=== PATIENT | female | born 1965 ===

== ENCOUNTER 2022-09-03 08:33 | Emergency (ER) | payer BC ==
--- OUTSIDE RECORDS SUMMARY | 2022-09-03 08:37 | XMS REPORT | Continuity of Care Document ---
:1965 Author Organization [facility] t Address [address] [place] [address] [place] [id number] Care Team Providers Name Role Phone Landon Caldwell Primary Care Physician BERTHA TRAN Attending Clinician Unavailable Bertha Tran PA-C Attending Clinician ELENITA CHATMAN Attending Clinician Unavailable Elenita Cherry Attending Clinician Massiel Wild Attending Clinician Luiz Pierson Attending Clinician Unavailable Nelida Georges MD Attending Clinician NELIDA GEORGES Attending Clinician Unavailable Allison Mir Attending Clinician MASSIEL JAMES Attending Clinician Unavailable Demar DONIS, Ayse Chamorro Attending Clinician Unavailable Provider, [facility] Attending Clinician Unavailable Raina Heath Attending Clinician RAINA GUO Attending Clinician Unavailable Doctor Unassigned, [place] Attending Clinician Unavailable Johnathan Lewis DO Attending Clinician Viki Yancey MD Attending Clinician VIKI YANCEY Attending Clinician Unavailable Reynaldo FITZGERALD, Bakari Attending Clinician Humera Correa Attending Clinician Provider, [facility] Attending Clinician Unavailable Lab, [facility] Attending Clinician Unavailable Vaishnavi Bonilla Attending Clinician VAISHNAVI BERNAL Attending Clinician Unavailable Luiz Pierson Admitting Clinician Unavailable Physician, No Primary or Family Admitting Clinician Unavaila ble Payers Payer Name Policy Type Policy Number Effective Date Expiration Date S jamaal [facility] [id number] 2011 00:00:00 Problems Condition Condition Condition Status Onset Resolution Last Treating Co mments Source Name Details Category Date Date Treatment Clinician Date No known No known Disease Unive rs active active ity of problems problems [facility] Allergies, Adverse Reactions, Alerts Allergy Allergy Status Severity Reaction(s) Onset Inactive Treating Comm ents Source Name Type Date Date Clinician No Known DA Active U 2008-04 [facility] [place] 00:00: d 00 [facility] No Known DA Active U 2008-04 [facility] [place] 00:00: d 00 Medical [place] NO KNOWN Drug Active Univers ALLERGIE Class ity of S [facility] Social History Social Habit Start Date Stop Date Quantity Comments Source Exposure to 2021-11-05 2021-11-15 Not sure [facility] [place]-CoV-2 00:00:00 09:20:00 [facility] (event) [place] Tobacco use and 2021-01-29 2021-01-29 Smokeless tobacco Un iversity of exposure 00:00:00 00:00:00 non-user [facility] Sex Assigned At [birth year] Universit y of 00:00:00 00:00:00 [facility] Smoking Status Start Date Stop Date Source Never smoked tobacco [facility] Medications Ordered Filled Start Stop Current Ordering Indication Dosage Frequency Signature Comments Components Source Medication Medication Date Date Medication? Clinician (SIG) Name Name vitamin E Yes vitamin E Uni vers (AQUASOL E, 11-15 ity of D-ALPHA 09:22: [place] TOCOPHEROL, 35 Medical ORAL) Branch doxycycline 2021- No [id number] 100mg Take 1 Univers hyclate 100 11-15 tablet by it y of mg tablet 00:00: 04:59 mouth in [place] 00 :00 the Medical morning Branch and 1 tablet in the evening. Do all this for 7 days. amoxicillin 2021- No [id number] 1{tbl} Take 1 Univers -clavulanat 11-08 tablet by it y of e 00:00: 04:59 mouth in [place] (AUGMENTIN) 00 :00 the Medical 875-125 mg morning Branch per tablet and 1 tablet in the evening. Do all this for 7 days. amoxicillin 2021- No [id number] 1{tbl} Take 1 Univers -clavulanat 11-08 tablet by it y of e 00:00: 04:59 mouth in [place] (AUGMENTIN) 00 :00 the Medical 875-125 mg morning Branch per tablet and 1 tablet in the evening. Do all this for 7 days. bromphenira 2021- No [id number] 5mL Take 5 mL Univers mine-pseudo 11-0806 by mouth 4 i ty of ephedrine-D 00:00: 04:59 (four) [place] M 00 :00 times Medical mg/5 mL daily as Branch syrup needed for Congestion /Allergies for up to 5 days. levothyroxi Yes 150ug Take 150 U nivers ne 150 mcg 7-27 mcg by ity of tablet 00:00: mouth. [place] 00 Medical Branch hydrocortis Yes INSERT 1 Un iris one 25 mg 7-13 SUPPOSITOR ity of suppository 00:00: Y IN THE [place] 00 RECTUM Medical DAILY Branch CLENPIQ 10 Yes Univers mg-3.5 gram 7-05 DIRECTED 1 it y of -12 00:00: KIT TO USE [place] gram/160 mL 00 Medical Soln DIRECTED Branch BY YOUR COLONOSCOP Y PACKET INSTRUCTIO NS Nitrofurant Yes TAKE 1 Univ ers oin&Nit. 5-11 CAPSULE BY ity o f Macrocryst 00:00: MOUTH [place] 100 mg 00 EVERY 12 Medical capsule HOURS FOR Branch 7 DAYS WITH FOOD azelastine 2020-04 Yes [id number] 1{spray Use 1 Univers 137 mcg 2-28 } [place] in ity of (0.1 %) 00:00: each [place] nasal spray 00 nostril 2 Med ical (two) Branch times daily. Use in each nostril as directed cetirizine 2020-04 Yes [id number] 10mg Take 1 U nivers (ZYRTEC) 10 2-28 tablet by ity of mg tablet 00:00: mouth [place] 00 daily. Medical Branch bromphenmariposa 2020-04 Yes [id number] 5mL Take 5 mL Univers mine-pseudo 2-28 by mouth 4 it y of ephedrine-D 00:00: (four[place] (BROMFED 00 times Medical DM) 2-30-10 daily as Bran ch mg/5 mL needed for syrup Congestion /Allergies . amoxicillin 2020-04 Yes [id number] 1{tbl} Take 1 Univers -clavulanat 2-28 tablet by ity of e 00:00: mouth 2 [place] (AUGMENTIN) 00 (two) Medical 875-125 mg times Branch per tablet daily. azelastine 2020-04 Yes [id number] 1{spray Use 1 Univers 137 mcg 2-28 } [place] in ity of (0.1 %) 00:00: each [place] nasal spray 00 nostril 2 Med ical (two) Branch times daily. Use in each nostril as directed cetirizine 2020-04 Yes [id number] 10mg Take 1 U nivers (ZYRTEC) 10 2-28 tablet by ity of mg tablet 00:00: mouth [place] 00 daily. Medical Branch [facility] 2020-04 Yes [id number] 5mL Take 5 mL Univers mine-pseudo 2-28 by mouth 4 it y of ephedrine-D 00:00: (four[place] (BROMFED 00 times Medical DM) 2-30-10 daily as Bran ch mg/5 mL needed for syrup Congestion /Allergies . amoxicillin 2020-04 Yes [id number] 1{tbl} Take 1 Univers -clavulanat 2-28 tablet by ity of e 00:00: mouth 2 [place] (AUGMENTIN) 00 (two) Medical 875-125 mg times Branch per tablet daily. azelastine 2020-04 Yes [id number] 1{spray Use 1 Univers 137 mcg 2-28 } [place] in ity of (0.1 %) 00:00: each [place] nasal spray 00 nostril 2 Med ical (two) Branch times daily. Use in each nostril as directed cetirizine 2020-04 Yes [id number] 10mg Take 1 U nivers (ZYRTEC) 10 2-28 tablet by ity of mg tablet 00:00: mouth [place] 00 daily. Medical Branch azelastine 2020-04 Yes [id number] 1{spray Use 1 Univers 137 mcg 2-28 } [place] in ity of (0.1 %) 00:00: each [place] nasal spray 00 nostril 2 Med ical (two) Branch times daily. Use in each nostril as directed cetirizine 2020-04 Yes [id number] 10mg Take 1 U nivers (ZYRTEC) 10 2-28 tablet by ity of mg tablet 00:00: mouth [place] 00 daily. Medical Branch bromphenira 2020-04- No [id number] 5mL Take 5 mL Univers mine-pseudo 06-08- by mouth 4 i ty of ephedrine-D 00:00: 00:00 (four) [place] M (BROMFED 00 :00 times Medical DM) 2-30-10 daily as Bran ch mg/5 mL needed for syrup Congestion /Allergies . amoxicillin 2020-04- No [id number] 1{tbl} Take 1 Univers -clavulanat -05 11- tablet by it y of e 00:00: 00:00 mouth 2 [place] (AUGMENTIN) 00 :00 (two) Medical 875-125 mg times Branch per tablet daily. amoxicillin 2020-04- No [id number] 1{tbl} Take 1 Univers -clavulanat -07 04- tablet by it y of e 00:00: 00:00 mouth 2 [place] (AUGMENTIN) 00 :00 (two) Medical 875-125 mg times Branch per tablet daily for 7 days. azithromyci 2020-04 Yes [id number] 250mg Take 1 Univers n 250 mg 0-21 tablet by ity of tablet 00:00: mouth [place] 00 daily. Medical Take 500 Branch mg day 1, then 250 mg days 2 to 5. methylPREDN 2020-04 Yes [id number] Take by Univers ISolone 0-21 mouth ity of (MEDROL, 00:00: SEE-INSTRU [place] MONICA,) 4 mg 00 CTIONS. Medica l tablets follow Branch package directions azithromyci 2020-04 Yes [id number] 250mg Take 1 Univers n 250 mg 0-21 tablet by ity of tablet 00:00: mouth [place] 00 daily. Medical Take 500 Branch mg day 1, then 250 mg days 2 to 5. methylPREDN 2020-04 Yes [id number] Take by Univers ISolone 0-21 mouth ity of (MEDROL, 00:00: SEE-INSTRU [place] MONICA,) 4 mg 00 CTIONS. Medica l tablets follow Branch package directions azithromyci 2020-04 Yes [id number] 250mg Take 1 Univers n 250 mg 0-21 tablet by ity of tablet 00:00: mouth [place] 00 daily. Medical Take 500 Branch mg day 1, then 250 mg days 2 to 5. methylPREDN 2020-04 Yes [id number] Take by Univers ISolone 0-21 mouth ity of (MEDROL, 00:00: SEE-INSTRU [place] MONICA,) 4 mg 00 CTIONS. Medica l tablets follow Branch package directions azithromyci 2020-04 Yes [id number] 250mg Take 1 Univers n 250 mg 0-21 tablet by ity of tablet 00:00: mouth [place] 00 daily. Medical Take 500 Branch mg day 1, then 250 mg days 2 to 5. methylPREDN 2020-04 Yes [id number] Take by Univers ISolone 0-21 mouth ity of (MEDROL, 00:00: SEE-INSTRU [place] MONICA,) 4 mg 00 CTIONS. Medica l tablets follow Branch package directions methylPREDN 0 Yes [id number] Take by Univers ISolone 12-10 mouth ity of (MEDROL, 00:00: SEE-INSTRU [place]ICA,) 4 mg 00 CTIONS. Medica l tablets follow Branch package directions albuterol Yes [id number] 2{puff} Inhale 2 Univers 90 9 Puffs ity of mcg/actuati 00:00: every 6 [place] on inhaler 00 (six) Medical hours as Branch needed for Wheezing or Shortness of Breath. methylPREDN Yes [id number] Take by Univers ISolone 9 mouth ity of (MEDROL, 00:00: SEE-INSTRU [place]ICA,) 4 mg 00 CTIONS. Medica l tablets follow Branch package directions albuterol Yes [id number] 2{puff} Inhale 2 Univers 90 9-01 Puffs ity of mcg/actuati 00:00: every 6 [place] on inhaler 00 (six) Medical hours as Branch needed for Wheezing or Shortness of Breath. methylPREDN Yes [id number] Take by Univers ISolone 9-01 mouth ity of (MEDROL, 00:00: SEE-INSTRU [place]ICA,) 4 mg 00 CTIONS. Medica l tablets follow Branch package directions albuterol Yes [id number] 2{puff} Inhale 2 Univers 90 9-01 Puffs ity of mcg/actuati 00:00: every 6 [place] on inhaler 00 (six) Medical hours as Branch needed for Wheezing or Shortness of Breath. methylPREDN Yes [id number] Take by Univers ISolone 9-01 mouth ity of (MEDROL, 00:00: SEE-INSTRU [place]ICA,) 4 mg 00 CTIONS. Medica l tablets follow Branch package directions albuterol Yes [id number] 2{puff} Inhale 2 Univers 90 9-01 Puffs ity of mcg/actuati 00:00: every 6 [place] on inhaler 00 (six) Medical hours as Branch needed for Wheezing or Shortness of Breath. ipratropium 2020-0 Yes [id number] 1{spray Use 1 Univers 0.03 % 7-27 } [place] in ity of nasal spray 00:00: each nostril 3 Medical (three) Branch times daily. mupirocin 2 2019-0 Yes [id number] Apply to Univers % ointment 7-27 area(s) 2 ity of 00:00: (two) [place] 00 times Medical daily. Branch MONTELUKAST 2020-0 Yes [id number] TAKE 1 Univers 10 mg 7-27 TABLET BY ity of tablet 00:00: MOUTH [place] 00 EVERYDAY Medical AT BEDTIME Branch ipratropium 2020-0 Yes [id number] 1{spray Use 1 Univers 0.03 % 7-27 } [place] in ity of nasal spray 00:00: each 00 nostril 3 Medical (three) Branch times daily. mupirocin 2 2019-0 Yes [id number] Apply to Univers % ointment 7-27 area(s) 2 ity of 00:00: (two) [place] 00 times Medical daily. Branch MONTELUKAST 2020-0 Yes [id number] TAKE 1 Univers 10 mg 7-27 TABLET BY ity of tablet 00:00: MOUTH [place] 00 EVERYDAY Medical AT BEDTIME Branch ipratropium 2020-0 Yes [id number] 1{spray Use 1 Univers 0.03 % 7-27 } [place] in ity of nasal spray 00:00: each 00 nostril 3 Medical (three) Branch times daily. mupirocin 2 2020-0 Yes [id number] Apply to Univers % ointment 7-27 area(s) 2 ity of 00:00: (two) [place] 00 times Medical daily. Branch MONTELUKAST 2020-0 Yes [id number] TAKE 1 Univers 10 mg 7-27 TABLET BY ity of tablet 00:00: MOUTH [place] 00 EVERYDAY Medical AT BEDTIME Branch ipratropium 2020-0 Yes [id number] 1{spray Use 1 Univers 0.03 % 7-27 } [place] in ity of nasal spray 00:00: each [place] 00 nostril 3 Medical (three) Branch times daily. mupirocin 2 2020-0 Yes [id number] Apply to Univers % ointment 7-27 area(s) 2 ity of 00:00: (two) [place] 00 times Medical daily. Branch MONTELUKAST 2020-0 Yes [id number] TAKE 1 Univers 10 mg 7-27 TABLET BY ity of tablet 00:00: MOUTH 00 EVERYDAY Medical AT BEDTIME Branch Vital Signs Vital Name Observation Time Observation Value Comments Source Systolic blood 2021-11-15 14:20:00 114 [facility]Hg[facility] Diastolic blood 2021-11-15 14:20:00 77 mm[Hg] [facility] Heart rate 2021-11-15 14:20:00 82 /min [facility] Body temperature 2021-11-15 14:20:00 36.83 Claire [facility] Respiratory rate 2021-11-15 14:20:00 16 /min [facility] Body height 2021-11-15 14:20:00 172.7 cm [facility] Body weight 2021-11-15 14:20:00 64.683 kg [facility] [place] [facility] BMI 2021-11-15 14:20:00 21.68 kg/m2 [facility] [place] [facility] Oxygen saturation in 2021-11-15 14:20:00 99 /min University of Arterial blood by [facility] Pulse oximetry Branch Systolic blood 2021-11-08 14:16:00 97 mm[Hg] Univer sity of pressure [place] [facility] Diastolic blood 2021-11-08 14:16:00 64 mm[Hg] Unive rsity of pressure [place] [facility] Heart rate 2021-11-08 14:16:00 83 /min [facility] [place] [facility] Body temperature 2021-11-08 14:16:00 36.94 Claire [facility] ersity [facility] [place] [facility] Body height 2021-11-08 14:16:00 172.7 cm [facility] [place] [facility] Body weight 2021-11-08 14:16:00 67.268 kg [facility] [place] [facility] BMI 2021-11-08 14:16:00 22.55 kg/m2 [facility] [place] [facility] Oxygen saturation in 2021-11-08 14:16:00 98 /min University of Arterial blood by [facility] Pulse oximetry Branch Systolic blood 2021-04-07 15:31:00 117 mm[Hg] Univer sity of pressure [place] [facility] Diastolic blood 2021-04-07 15:31:00 51 mm[Hg] Unive rsity of pressure [place] [facility] Heart rate 2021-04-07 15:31:00 87 /min [facility] [place] [facility] Body temperature 2021-04-07 15:31:00 37.17 Claire [facility] [place] [facility] Respiratory rate 2021-04-07 15:31:00 17 /min Univ ersity [facility] [place] [facility] Body height 2021-04-07 15:31:00 172.7 cm [facility] [place] [facility] Body weight 2021-04-07 15:31:00 65.137 kg [facility] [place] [facility] BMI 2021-04-07 15:31:00 21.83 kg/m2 [facility] [place] [facility] Oxygen saturation in 2021-04-07 15:31:00 98 /min University of Arterial blood by [facility] Pulse oximetry Branch Procedures Procedure Date / Time Performed Performing Clinician Sourc e POCT SARS-COV-2 2021-11-08 00:00:00 Elenita Chatman [facility] ANTIGEN (BINAX NOW) Medical Bran ch Encounters Start End Encounter Admission Attending Care Care Encounter Source Date/Time Date/Time Type Type Clinicians Facility Department ID 2021-11-15 2021-11-15 Outpatient R ANN [facility] [id number] Univers 09:20:00 09:51:37 [facility] 2021-11-15 2021-11-15 [facility] [id number] Univers 09:20:00 09:51:37 [facility] [id number] it y of [place] [id number] [place] as PER?BLEA [id number] [address] MEDICAL OFFICE [facility] 2021-11-08 2021-11-08 Outpatient R DEISY [facility] [id number] Univers 09:20:00 10:05:43 ELENITA rasmussen f [facility] 2021-11-08 2021-11-08 Urgent Elenita Chatman [facility] 1.2.840 .[id number] Univers 09:20:00 10:05:43 Care [facility] [id number] ity [facility] [id number] [place] PER?BLEA [id number] [address] MEDICAL OFFICE [facility] 2021-09-03 2021-09-03 Outpatient EMERSON Clint [facility] KATHRYN [id number] [facility] 08:00:00 08:00:00 [place], 66 Joycelyn lyn [facility] 2021-04-29 2021-04-29 [facility] [id number] Univers 00:00:00 00:00:00 [facility] [id number] it y of [place] [id number] [place] PER?BLEA [id number] [address] MEDICAL OFFICE BUILDING 2021-04-07 2021-04-07 [facility] [id number] Univers 09:40:00 09:51:24 NELIDA ittheo [facility] 2021-04-07 2021-04-07 Urgent José Manuel [facility] [id number] [id number] Univers 09:40:00 09:51:24 Care Nelida HEALTH [id number] it y of [place] [id number] [place] PER?BLEA [id number] [address] MEDICAL OFFICE [facility] 2021-04-07 2021-04-07 Outpatient R JOSÉ MANUEL [facility] [id number] Univers 09:40:00 09:51:24 NELIDA [facility] [place] [facility] 2021-01-29 2021-01-29 Urgent Allison Yeh [facility] [id number] Univers 12:59:25 13:19:[address] [facility] [id number] ity of [place] [id number] [place] Per?Blea [id number] [address] Medical Office [facility] 2021-01-29 2021-01-29 [facility] [id number] Univers 13:00:00 13:00:00 MASSIEL [facility] [place] [facility] 2020-12-12 2020-12-12 Letter BERTHA Benz [id number] Univers 00:00:00 00:00:00 (Out) Ayse GARCIA [id number] it y of [facility] [id number] [place] as [id number] [address] 2020-12-10 2020-12-10 Urgent Provider, [facility] 1.2.840.114 [id number] Univers 10:09:15 10:29:15 [facility] [id number] ity of [place] [id number] [place] Per?Blea [id number] [address] Medical Office [facility] 2020-12-10 2020-12-10 Outpatient R SARI [facility] [id number] Univers 10:20:00 10:20:00 RAINA garcia o f [facility] 2020-12-10 2020-12-10 Orders Doctor BERTHA 1.2.840.114 [id number] Univers 00:00:00 00:00:00 Only Unassigned, RADHA [id number] ity of [place] [facility] 4.2.7.2.686 [place] as [id number] [facility] 009 Branch 2020-09-02 2020-09-02 Outpatient EMERSON Jaramillo [facility] KATHRYN [id number] [facility] 12:00:00 12:00:00 Mass, 63 Leliala n Luiz [facility] 2020-07-01 2020-07-01 [facility] 1.2.840.114 [id number] 00:00:00 00:00:00 Outreach [facility] [id number] [facility] 4.2.7.2.686 PAVILLION [id number] 2020-07-01 2020-07-01 Patient Joshua [facility] 1.2.840.114 [id number] Univers 00:00:00 00:00:00 Outreach [facility] [id number] i ty of [facility] 4[place]2.7.2.[place] [id number] [address] 2019-11-05 2019-11-07 [facility] [id number] 08:54:46 12:48:34 Visit [facility] [id number] [place] 4.2.7.2.686 [place] [id number] Primary & 144 Specialty Care 2019-11-05 2019-11-07 Office [facility] [id number] Univers 08:54:46 12:48:34 Visit [facility] [id number] i ty of [place] 4[place]2.7.2.686 [place] [id number] [facility] Primary & 144 Branch Specialty Care 2019-11-05 2019-11-05 Outpatient R NAYE [facility] [id number] Univers 09:15:00 09:15:00 VIKI jose of [facility] 2019-11-05 2019-11-05 Bakari Nieto [facility] [id number] Univers 00:00:00 00:00:00 HEALTH [id number] it y of [place] 4.2.7.2.686 [facility] [id number] [facility] Primary & 144 Branch Specialty Care 2019-10-29 2019-10-29 Outpatient R NAYE, [facility] [id number] Univers 09:45:00 09:45:00 VIKI ity of [facility] 2019-10-23 2019-10-23 [facility] 1.2.840.114 [id number] Univers 14:30:00 23:59:00 Encounter Humera Jules 350.1.13.10 ity of [place] 4.2.7.2.686 [facility] [id number] [facility] 807 Branch 2019-10-23 2019-10-23 Outpatient R [facility] [id number] Univers 16:20:00 16:20:00 ity of [facility] 2019-10-23 2019-10-23 Urgent Provider, [facility] Urgent Care [facility] 1.2.840.114 [id number] Univers 13:17:49 13:37:49 Care Humera Meza [id number] ity of [place] 4.2.7.2.686 [place] as Professio [id number] Ct dicme nal 044 Branch Office [facility] 2019-10-23 2019-10-23 Orders Doctor BERTHA 1.2.840.114 [id number] Univers 00:00:00 00:00:00 Only Unassigned, RADHA [id number] ity of [place] [facility] 4.2.7.2.686 [place] as [id number] [facility] 009 Branch 2019-10-17 2019-10-17 Laboratory Lab, Adc Fam Pob I [facility] 1.2. 840.114 [id number] Univers 08:00:52 08:20:52 Only Vaishnavi [facility] 350.1.13.10 ity of [place] 4.2.7.2.686 [place] as Professio [id number] Ct dical nal 044 Branch Office [facility] 2019-10-17 2019-10-17 Outpatient Korin BERNAL [facility] [id number] Univers 08:00:00 08:00:00 VAISHNAVI garcia [facility] 2019-08-28 2019-08-28 Outpatient EMERSON Jaramillo [facility] [id number] [facility] 12:00:00 12:00:00 [place], 89 Joycelyn anthony lyn [facility] Results Test Description Test Time Test Comments Results Result Comments Source POCT SARS-COV-2 ANTIGEN (BINAX NOW) 2021-11-08 15:10:00 Test Item Value Reference Range Interpretation Comme nts POCT SARS-COV-2 ANTIGEN (test code = 5076) Not Detected Not Detecte d On board controls acceptable with C Line (test code = Yes 5778) [facility]
[2022-09-03 09:09] LABS: Absolute Lymphocytes (CBC) 2.1 K/uL (0.7-4.9); Hematocrit 40.6 % (36.0-45.0); Lymphocytes % 30.8 % (15.3-44.8); MCV 89.9 fL (80-100); RBC Red Blood Cell Count 4.52 M/uL (3.86-4.86)
[2022-09-03 09:33] LABS: Protime INR 0.96
[2022-09-03 09:48] LABS: ALT/SGPT 19 U/L (13-56); AST/SGOT 14 U/L (15-37); Albumin 3.7 g/dL (3.4-5.0); Alkaline Phosphatase 72 U/L (45-117); BUN Blood Urea Nitrogen 18 mg/dL (7-18); Bicarbonate 31 mEq/L (21-32); Bilirubin Direct 0.1 mg/dL (0-0.2); Bilirubin Indirect, Calculated 0.3 mg/dL (0.2-0.8); Bilirubin Total 0.4 mg/dL (0.2-1.0); Glomerular Filtration Rate 100 ml/min (=/>90); Glucose Level 90 mg/dL (74-106); NT PRO-BNP 56 pg/mL (<125); Potassium 3.6 mEq/L (3.5-5.1); Protein, Total 6.9 g/dL (6.4-8.2); Sodium Level 142 mEq/L (136-145)
[2022-09-03 09:52] LABS: Troponin High Sensitivity < 3.0 pg/mL (<58.9)
--- NOTE | 2022-09-03 10:30 | RAD REPORT ---
EXAM DESCRIPTION: [place] Single View09/03/2022 9:26 am CLINICAL HISTORY: Chest pain COMPARISON: 2017 FINDINGS: The lungs appear clear of acute infiltrate. The heart is normal size IMPRESSION: No acute abnormalities displayed
--- NOTE | 2022-09-03 10:40 | RAD REPORT ---
EXAM DESCRIPTION: CT - Angio Aorta For Dissection - 09/03/2022 10:05 am CLINICAL HISTORY: . Chest and abd pain COMPARISON: None TECHNIQUE: Computed tomography angiography of the chest, abdomen pelvis were obtained. 100 cc Isovue 370 was administered intravenously. Coronal and sagittal reconstruction were performed. MIP 3D reconstruction was performed All CT scans are performed using dose optimization technique as appropriate and may include automated exposure control or mA/KV adjustment according to patient size. FINDINGS: An aortic dissection is not seen. An aortic aneurysm is not displayed. 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 SMA and TARA isbell nt. A lung consolidation is not present. A pericardial effusion is not seen. A pleural effusion is not no elder. The liver,spleen, pancreas,adrenals and kidneys demonstrate no significant abnormality. There no evidence diverticulitis. Normal appendix No adnexal mass IMPRESSION: Negative for an aortic dissection. 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
--- NOTE | 2022-09-03 10:53 | EDPHYS ---
Physician Documentation [facility] Name: Elena Valentin Age: 56 yrs Sex: Female : 1965 Arrival Date: 09/03/2022 Time: 08:33 Bed 4 Private MD: ED Physician Kemal Flannery HPI: 09/03 09:36 This 56 yrs old Female presents to ER via Ambulatory with complaints of Chest Pain. rn 09:36 The patient or guardian reports chest pain that is located primarily in the substernal rn area. Onset: this morning. The pain radiates to back. Associated signs and symptoms: Pertinent positives: dizziness, Pertinent negatives: abdominal pain, cough, palpitations, recent travel, shortness of breath, syncope, vomiting. The chest pain is described as "pulling". Modifying factors: The symptoms are alleviated by nothing. the symptoms are aggravated by nothing. Severity of pain: At its worst the pain was moderate in the emergency department the pain has improved. The patient has not experienced similar symptoms in the past. The patient has not recently seen a physician. Pt reports chest pain, "pulling", radiates to back, began this AM, began sharp then progressed to "pulling". NO trauma. Has had recent sinus problems, seen by pcp and ENT yesterday. Has MVP with regurgitation, sees cardiology frequently, states had neg stress test within the last year. NO syncope. . 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 - Social history:: Smoking status: Patient denies any tobacco usage or history of. - Family history:: not pertinent. - Hospitalizations: : No recent hospitalization is reported. ROS: 09:36 Constitutional: Negative for fever, chills, and weight loss, Neck: Negative for injury, rn pain, and swelling, Cardiovascular: Negative for palpitations, and edema, Respiratory: Negative for shortness of breath, cough, wheezing Abdomen/GI: Negative for abdominal pain, nausea, vomiting, diarrhea, and constipation, Back: Negative for injury MS/Extremity: Negative for injury and deformity, Skin: Negative for injury, rash, and discoloration, Neuro: Negative for headache, weakness, numbness, tingling, and seizure. Exam: 09:05 ECG was reviewed by the Attending Physician. rn 09:36 Constitutional: This is a well developed, well nourished patient who is awake, alert, rn and in no acute distress. Ambulatory to room without difficulty or assistance. Head/Face: Normocephalic, atraumatic. Cardiovascular: Regular rate and rhythm. No pulse deficits. Respiratory: No increased work of breathing, no retractions or nasal flaring. Abdomen/GI: Soft, non-tender Skin: Warm, dry MS/ Extremity: Pulses equal, no cyanosis. Neurovascular intact. Full, normal range of motion. Equal circumference. Neuro: Awake and alert, GCS 15, oriented to person, place, time, and situation. Motor strength 5/5 in all extremities. Sensory grossly intact. Cerebellar exam normal. Vital Signs: 08:55 BP 130 / 92; Pulse 79; Resp 16; Temp 98.7; Pulse Ox 100% ; Weight 65.77 kg; Height 5 hb ft. 8 in. ; Pain 6/10; 09:55 BP 103 / 70; Pulse 80; Resp 16; Pulse Ox 100% ; hb 08:55 Body Mass Index 22.05 (65.77 kg, 172.72 cm) hb 08:55 Pain Scale: Adult hb MDM: 08:35 Patient medically screened. rn 10:49 Differential diagnosis: acute myocardial infarction, acute pericarditis, anxiety, rn coronary artery disease chest wall pain, congestive heart failure costochondritis, esophagitis, gastritis, gastroesophageal reflux disease (GERD), pancreatitis, peptic ulcer disease, pericarditis, pleurisy, pneumonia, pneumothorax, stable angina, thoracic aortic disection, unstable angina. Data reviewed: vital signs, nurses notes, lab test result(s), EKG, radiologic studies, CT scan, plain films, and as a result, I will discharge patient. Management of patient was discussed with the following: Primary Care Provider: Dr. Lobo. Counseling: I had a detailed discussion with the patient and/or guardian regarding: the historical points, exam findings, and any diagnostic results supporting the discharge/admit diagnosis, lab results, radiology results, the need for outpatient follow up, to return to the emergency department if symptoms worsen or persist or if there are any questions or concerns that arise at home. Special discussion: Based on the patient's history, exam, and Dx evaluation, there is no indication for emergent intervention or inpatient Tx. It is understood by the patient/guardian that if the Sx's persist or worsen they need to return immediately for re-evaluation. I discussed with the patient/guardian in detail that at this point there is no indication for admission to the hospital. It is understood, however, that if the symptoms persist or worsen the patient needs to return immediately for re-evaluation. Based on the history and exam findings, there is no indication for further emergent testing or inpatient evaluation. I discussed with the patient/guardian the need to see the change management specialist for further evaluation of the symptoms. I discussed with the patient/guardian the need to see the primary care provider for further evaluation of the symptoms. ED course: Labs unremarkable, CT aorta neg for dissection/PE/aneurysm. 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 No abd pain or discomfort when eating, no GI bleed, will dc home with return precautions. . 09/03 08:51 Order name: Basic Metabolic Panel; Complete Time: 09:59 09/03 08:51 Order name: CBC with Diff; Complete Time: 09:36 09/03 08:51 Order name: LFT's; Complete Time: 09:59 09/03 08:51 Order name: NT PRO-BNP; Complete Time: 09:59 09/03 08:51 Order name: PT-INR; Complete Time: 09:36 09/03 08:51 Order name: Troponin HS; Complete Time: 09:59 09/03 08:51 Order name: XRAY Chest (1 view); Complete Time: 10:32 09/03 08:51 Order name: CT Aorta for Dissection; Complete Time: 10:41 09/03 08:51 Order name: EKG; Complete Time: 08:52 09/03 08:51 Order name: Cardiac monitoring; Complete Time: 08:55 09/03 08:51 Order name: EKG - Nurse/Tech; Complete Time: 08:55 rn 09/03 08:51 Order name: IV Saline Lock; Complete Time: 09: rn 09/03 08:51 Order name: Labs collected and sent; Complete Time: : rn 09/03 08:51 Order name: O2 Per Protocol; Complete Time: 55 rn 09/03 08:51 Order name: O2 Sat Monitoring; Complete Time: :55 rn EC:05 Rate is 70 beats/min. Rhythm is regular. QRS [place] is Normal. IA interval is normal. QRS rn interval is normal. QT interval is normal. No Q waves. T waves are Normal. No ST changes noted. Clinical impression: Normal ECG. Interpreted by me. Reviewed by me. Administered Medications: No medications were administered Disposition Summary: 09/03/22 10:52 Discharge Ordered Location: Home rn Problem: new rn Symptoms: have improved rn Condition: Stable rn Diagnosis - Chest pain, unspecified rn Followup: rn - With: Private Physician - When: As needed - Reason: Recheck today's complaints, Re-evaluation by your physician Discharge Instructions: - Discharge Summary Sheet rn - Nonspecific Chest Pain, Adult rn - Pain Without a Known Cause rn Forms: - Medication Reconciliation Form rn - Thank You Letter rn - Antibiotic risk management internship - Prescription Opioid Use rn Signatures: Dispatcher [employer] Kemal Rubin MD MD rn Baxter, Heather RN RN
--- NOTE | 2022-09-03 10:53 | ER ---
Nurse's Notes [facility] Name: Elena Valentin Age: 56 yrs Sex: Female : 1965 Arrival Date: 09/03/2022 Time: 08:33 Bed 4 Private MD: Diagnosis: Chest pain, unspecified Presentation: 09/03 08:55 Chief complaint: Patient states: i started having sharp chest pain in the middle of my hb chest this morning about 530, I have never had chest pain like this before. it has come and go, but I feel like someone or something is pulling my chest towards my back. Coronavirus screen: Vaccine status: Patient reports receiving the 2nd dose of the covid vaccine. Client denies travel out of the [place] in the last 14 days. Ebola Screen: Patient negative for fever greater than or equal to 101.5 degrees Fahrenheit, and additional compatible Ebola Virus Disease symptoms Patient denies exposure to infectious person. Patient denies travel to an Ebola-affected area in the 21 days before illness onset. Initial Sepsis Screen: Does the patient meet any 2 criteria? No. Patient's initial sepsis screen is negative. Does the patient have a suspected source of infection? No. Patient's initial sepsis screen is negative. Risk Assessment: Do you want to hurt yourself or someone else? Patient reports no desire to harm self or others. Onset of symptoms was September 03, 2022. 08:55 Method Of Arrival: Ambulatory hb 08:55 Acuity: MANDO 3 hb Triage Assessment: 08:59 General: Appears uncomfortable, slender, well groomed, Behavior is calm, cooperative, hb appropriate for age. Pain: Complains of pain in chest. Cardiovascular: Reports chest pain. 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 - Social history:: Smoking status: Patient denies any tobacco usage or history of. - Family history:: not pertinent. - Hospitalizations: : No recent hospitalization is reported. Screenin:04 [facility] ED Fall Risk Assessment (Adult) History of falling in the last 3 months, hb including since admission No falls in past 3 months (0 pts). Abuse screen: Denies threats or abuse. Denies injuries from another. Nutritional screening: No deficits noted. Tuberculosis screening: No symptoms or risk factors identified. Assessment: 09:08 Pain: Pain radiates to back Pain began suddenly, 4 hours ago. hb Vital Signs: 08:55 BP 130 / 92; Pulse 79; Resp 16; Temp 98.7; Pulse Ox 100% ; Weight 65.77 kg; Height 5 hb ft. 8 in. ; Pain 6/10; 09:55 BP 103 / 70; Pulse 80; Resp 16; Pulse Ox 100% ; hb 08:55 Body Mass Index 22.05 (65.77 kg, 172.72 cm) hb 08:55 Pain Scale: Adult hb ED Course: 08:35 Patient arrived in ED. ts1 08:35 Kemal Flannery MD is Attending Physician. rn 08:59 Triage completed. hb 09:02 Chela Madison, RN is Primary Nurse. ld1 09:02 Inserted saline lock: 20 gauge in left antecubital area, using aseptic technique. Blood ld1 collected. 09:03 Arm band placed on right wrist. hb 09:04 Patient maintains SpO2 saturation greater than 95% on room air. hb 09:04 No provider procedures requiring assistance completed. hb 09:04 Patient has correct armband on for positive identification. Bed in low position. Call hb light in reach. Side rails up X 1. Client placed on continuous cardiac and pulse oximetry monitoring. NIBP monitoring applied. 09:28 XRAY Chest (1 view) In Process Unspecified. EDMS 09:42 Chela Madison, RN is Primary Nurse. ld1 10:07 CT Aorta for Dissection In Process Unspecified. EDMS 10:56 IV discontinued, intact, bleeding controlled, No redness/swelling at site. Pressure hb dressing applied. Administered Medications: No medications were administered Medication: 09:04 VIS not applicable for this client. hb Outcome: 10:52 Discharge ordered by . rn 10:56 Discharged to home ambulatory. hb 10:56 Condition: good 10:56 Discharge instructions given to patient. 10:57 Patient left the ED. hb Signatures: Dispatcher [employer] Kemal Rubin MD MD rn Baxter, Heather RN RN Chela Basilio RN RN ld1 Diane Hutson [facility] ts1
[2022-09-03 11:03] VITALS: TEMP 98.7; O2SAT 100
[2022-09-03 11:05] VITALS: BP 103/70
--- NOTE | 2022-09-05 07:31 | EKG ---
Test Date: 2022-09-03 Test Time: 08:52:18 Placement Manager: MEASUREMENT RESULTS: Intervals: Rate: 70 LA: 140 QRSD: 90 QT: 382 QTc: 412 [place]: P: 49 LA: 140 QRS: 71 T: 59 INTERPRETIVE STATEMENTS: Normal sinus rhythm Normal ECG No previous ECG available for comparison Electronically Signed On 09-05-22 07:25:50 CDT by [place] Singh
== END 2022-09-03 10:57 | disposition home or self-care (01) ==
LOC: ER 08:33
DX: R07.89 Other chest pain (principal); I34.1 Nonrheumatic mitral (valve) prolapse
CPT/HCPCS: 93005; 85025; 80048; 36415; 85610; 80076; 84484; 83880; 71275; 74175; 71045; 99284; Q9967